=== PATIENT | male | born 1965 | race Caucasian/White ===

== ENCOUNTER 2019-12-16 10:35 | Emergency (ER) | payer MEDICAID ==
[~2019-12-16] VITALS: Ht 177.8 cm; Wt 113.4 kg
[2019-12-16] MEDS ORDERED: IV NORMAL SALINE 1000 ML BAG IV ONE (11:00)
[2019-12-16] MEDS ORDERED: LORAZEPAM 2 MG/1 ML VIAL IV ONE (11:00)
[2019-12-16] MEDS ORDERED: LORAZEPAM 2 MG/1 ML VIAL ONE (11:24)
[2019-12-16 11:28] LABS: BASOPHILS # (AUTO) 0.1 K/uL (0.0-8.0); BASOPHILS % (AUTO) 0.5 % (0.0-2.0); EOSINOPHILS # (AUTO) 0.4 K/uL (0.0-0.7); EOSINOPHILS % (AUTO) 3.3 % (0.0-7.0); HEMATOCRIT 41.4 % (36.7-47.1); HEMOGLOBIN 13.7 g/dL (12.5-16.3); LYMPHOCYTES % (AUTO) 15.6 % (20.5-51.5); MEAN CORPUSCULAR HGB CONC 33 g/dL (32.5-36.3); MEAN CORPUSCULAR VOLUME 87.4 fL (73.0-96.2); MONOCYTES # (AUTO) 1.2 K/uL (2.0-10.0); MONOCYTES % (AUTO) 9.8 % (0.0-11.0); NEUTROPHILS % (AUTO) 70.8 % (38.5-71.5); PLATELET COUNT (AUTO) 346 K/uL (152-348); RED BLOOD CELL COUNT(AUTO) 4.74 MIL/uL (4.06-5.63); WHITE BLOOD COUNT (AUTO) 12.7 K/uL (3.6-10.2)
[2019-12-16 11:42] LABS: BILIRUBIN,DIRECT 0.1 mg/dL (0.0-0.2); BILIRUBIN,TOTAL 0.2 mg/dL (0.2-1.0); CREATININE 0.9 mg/dL (0.6-1.3); POTASSIUM 3.6 mmol/L (3.5-5.1); TOTAL PROTEIN, SERUM 8.4 g/dL (6.4-8.2)
[2019-12-16] MEDS ORDERED: HYDROMORPHONE 1 MG/1 ML DISP.SYRIN IV ONE ×2 (12:15→19:00)
[2019-12-16] MEDS ORDERED: HYDROMORPHONE 1 MG/1 ML DISP.SYRIN ONE ×2 (12:33→19:06)
[2019-12-16] MEDS ORDERED: CEFTRIAXONE 1 G VIAL ONE (13:57)
[2019-12-16] MEDS ORDERED: CEFTRIAXONE 2 G in IV DEXTROSE 5% 100 ML IV ONE (14:00)
--- NOTE | 2019-12-16 14:00 | NUR ---
Attempted to obtain information about current home medications, pt refused to provide any information at this time. Pt states " I just want to rest right now ".
--- NOTE | 2019-12-16 16:45 | NUR ---
ACCORDING TO [facility] [employer], PT IS GOING TO BE TRANSFERED TO [facility] ER VIA [facility]. ADMITTING MD IS DR. MEIER. PHONE NUMBER FOR REPORT IS : [phone]. AMBULANCE COMPANY "[employer] [facility] [employer]" WAS CALLED ACCORDING TO PT's INSURANCE REQUEST ([phone]). [place] IS 2030. PT IS RESTING COMFORTABLY IN THE BED. NO S/S OF ACUTE DISTRESS AT THIS TIME. CONTINUE TO MONITOR THE PT.
[2019-12-16] MEDS ORDERED: AZITHROMYCIN 500MG/ D5W 250ML IVPB **ER PYXIS ONLY IV ONE (18:55)
[2019-12-16] MEDS ORDERED: ONDANSETRON 4 MG/2 ML VIAL IV ONE (19:00)
[2019-12-16] MEDS ORDERED: AZITHROMYCIN IV 500 MG in IV DEXTROSE 5% 250 ML IV ONE (19:00)
[2019-12-16] MEDS ORDERED: ONDANSETRON 4 MG/2 ML VIAL ONE (19:06)
--- NOTE | 2019-12-16 20:57 | NUR ---
Report given to Rashid JANE [facility].
--- NOTE | 2019-12-16 21:07 | NUR ---
Max arrived to ER to transport patient to [facility]. Report and documentation given to EMT.
== END 2019-12-16 22:07 | disposition short-term general hospital (02) ==
LOC: ER 10:35
DX: J18.9 Pneumonia, unspecified organism (principal); G89.29 Other chronic pain; M25.569 Pain in unspecified knee; E78.5 Hyperlipidemia, unspecified; J44.9 Chronic obstructive pulmonary disease, unspecified; E11.9 Type 2 diabetes mellitus without complications
CPT/HCPCS: 36415; 71045; 80048; 80076; 82962; 83690; 85025; 87400; 93005; 96361; 96365; 96367; 96375; 96376; 99285; J0456; J0696; J1170 ×2; J2060; J2405; A4663; J7030

== ENCOUNTER 2020-01-04 12:36 | Emergency (ER) | payer MEDICAID, OTHER ==
[~2020-01-04] VITALS: Ht 177.8 cm; Wt 108.9 kg
--- NOTE | 2020-01-04 12:40 | NUR ---
called pt name. pt not in er waiting room or ouside the er waiting room
[2020-01-04] MEDS ORDERED: HYDROMORPHONE 2 MG/1 ML DISP.SYRIN ONE (13:14)
[2020-01-04] MEDS ORDERED: ONDANSETRON 4 MG/2 ML VIAL ONE (13:14)
[2020-01-04] MEDS ORDERED: HYDROMORPHONE 1 MG/1 ML DISP.SYRIN IM ONE (13:15)
[2020-01-04] MEDS ORDERED: ONDANSETRON 4 MG/2 ML VIAL IM ONE (13:15)
--- NOTE | 2020-01-04 13:18 | NUR ---
PT WAS EVALUATED BY DR LINARES. PT WAS MEDICATED ACCORDING TO ER MD ORDERS. PT TOLERATED TO MEDICATION WITHOUT COMPLICATIONS. PT WAS D/C'D TO HOME. D/C INSTRUCTIONS GIVEN TO THE PT.
[2020-01-04 13:24] VITALS: BP 134/81
== END 2020-01-04 13:25 | disposition home or self-care (01) ==
LOC: ER 12:36
DX: G89.29 Other chronic pain (principal); M54.5 Low back pain; E11.9 Type 2 diabetes mellitus without complications; J44.9 Chronic obstructive pulmonary disease, unspecified; E78.5 Hyperlipidemia, unspecified
CPT/HCPCS: 96372 ×2; 99284; J1170; J2405; A4663

== ENCOUNTER 2021-03-28 02:41 | Emergency (ER) | payer MEDICAID, OTHER ==
[~2021-03-28] VITALS: Ht 162.6 cm; Wt 108.9 kg
--- NOTE | 2021-03-28 02:50 | NUR ---
Pt bib RA 39 with c/o hyperglycemia and back spasms, A/O x4 able to make need verbally known, clear speech complete sentences. No SOB or labored breathing, afebrile, noted with diaphoresis. All pulses palpable, no edema noted. No c/o GI/. Pt noted to be slightly anxious. Able to follow instructions, ambulatory educated on safety precautions but pt continues to stand up due to back spams. Patient now in bed, lowest position.
[2021-03-28] MEDS ORDERED: CYCL5TAB PO (03:05)
[2021-03-28] MEDS ORDERED: FURO40TA5 PO (03:05)
[2021-03-28] MEDS ORDERED: PANT40TA2 PO (03:05)
[2021-03-28] MEDS ORDERED: CARI350T PO (03:05)
[2021-03-28] MEDS ORDERED: MONT10TA33 PO (03:05)
[2021-03-28] MEDS ORDERED: ONDA4TAB5 PO (03:05)
[2021-03-28] MEDS ORDERED: robaxin (03:05)
[2021-03-28] MEDS ORDERED: GLIP10TA11 PO (03:05)
[2021-03-28] MEDS ORDERED: BACL10TA PO (03:05)
[2021-03-28] MEDS ORDERED: ATOR10TA PO (03:05)
[2021-03-28] MEDS ORDERED: AMIT50TA3 PO (03:05)
[2021-03-28] MEDS ORDERED: MELO-107 PO (03:05)
[2021-03-28] MEDS ORDERED: GABA-536 PO (03:05)
[2021-03-28] MEDS ORDERED: METF-440 PO ×2 (03:05→05:20)
[2021-03-28] MEDS ORDERED: LISI10TA29 PO (03:05)
[2021-03-28] MEDS: IV NORMAL SALINE 1000 ML BAG IV ONE ×2 (03:10→04:31)
[2021-03-28 03:11] LABS: BASOPHILS # (AUTO) 0.1 K/uL (0.0-8.0); BASOPHILS % (AUTO) 0.6 % (0.0-2.0); EOSINOPHILS # (AUTO) 0.6 K/uL (0.0-0.7); EOSINOPHILS % (AUTO) 3.6 % (0.0-7.0); HEMATOCRIT 38.7 % (36.7-47.1); HEMOGLOBIN 12.8 g/dL (12.5-16.3); LYMPHOCYTES # (AUTO) 1.8 K/uL (20.0-40.0); LYMPHOCYTES % (AUTO) 11.8 % (20.5-51.5); MEAN CORPUSCULAR HEMOGLOBIN 29.2 uug (23.8-33.4); MEAN CORPUSCULAR HGB CONC 33 g/dL (32.5-36.3); MEAN CORPUSCULAR VOLUME 88.5 fL (73.0-96.2); MONOCYTES # (AUTO) 1.3 K/uL (2.0-10.0); MONOCYTES % (AUTO) 8.4 % (0.0-11.0); NEUTROPHILS # (AUTO) 11.7 K/uL (1.8-8.9); NEUTROPHILS % (AUTO) 75.6 % (38.5-71.5); PLATELET COUNT (AUTO) 345 K/uL (152-348); RED BLOOD CELL COUNT(AUTO) 4.37 MIL/uL (4.06-5.63); WHITE BLOOD COUNT (AUTO) 15.4 K/uL (3.6-10.2)
[2021-03-28] MEDS ORDERED: METFORMIN HCL 500 MG TABLET ONE (03:14)
[2021-03-28] MEDS ORDERED: GABAPENTIN 300 MG CAPSULE ONE (03:14)
[2021-03-28] MEDS ORDERED: BACLOFEN 10 MG TABLET ONE (03:14)
[2021-03-28] MEDS: BACLOFEN 10 MG TABLET PO ONE (03:15)
[2021-03-28] MEDS: GABAPENTIN 300 MG CAPSULE PO ONE (03:15)
[2021-03-28] MEDS: METFORMIN HCL 500 MG TABLET PO ONE (03:15)
--- NOTE | 2021-03-28 03:20 | NUR ---
Rechecked glucose reading noted to be 494, Dr. Nelson made aware with NNO. Patient A/O x4, no changes in LOC.
[2021-03-28 03:23] LABS: ALANINE AMINOTRANSFERASE 36 U/L (16-63); ALKALINE PHOSPHATASE 176 U/L (50-136); ASPARTATE AMINOTRANSFERASE 23 U/L (15-37); BILIRUBIN,DIRECT < 0.1 mg/dL (0.0-0.2); BILIRUBIN,TOTAL 0.1 mg/dL (0.2-1.0); CARBON DIOXIDE 25 mmol/L (21-32); CHLORIDE 97 mmol/L (98-107); POTASSIUM 5.1 mmol/L (3.5-5.1); TOTAL PROTEIN, SERUM 8.2 g/dL (6.4-8.2); UREA NITROGEN, BLOOD 24 mg/dL (7-18)
[2021-03-28 03:29] LABS: GLUCOSE 521 mg/dL (74-106)
[2021-03-28 03:55] LABS: *BILIRUBIN,URIN NEGATIVE (NEGATIVE); *BLOOD, URINE NEGATIVE (NEGATIVE); *CLARITY,URINE CLEAR (CLEAR); *COLOR,URINE YELLOW (YELLOW); *KETONES,URINE NEGATIVE (NEGATIVE); *UROBILINOGEN,URINE 0.2 E.U./dl (NORMAL); LEUKOCYTE ESTERASE ,URINE NEGATIVE (NEGATIVE); NITRITE, URINE NEGATIVE (NEGATIVE); UGLUCOSE 2+ (NEGATIVE)
[2021-03-28 04:08] LABS: BACTERIA,URINE NONE SEEN /HPF (NONE SEEN); RBC,URINE 0-3 /HPF (0-3); SQUAMOUS EPITHELIAL CELL,UR FEW /HPF (NONE SEEN); WBC,URINE 0-3 /HPF (0-3)
--- NOTE | 2021-03-28 04:33 | NUR ---
Rechecked glucose reading noted to be 366, Dr. Nelson made aware with no new orders.
[2021-03-28] MEDS: KETOROLAC TROMETHAMINE 30 MG INJ IM ONE (04:48)
[2021-03-28] MEDS ORDERED: KETOROLAC TROMETHAMINE 30 MG INJ ONE (04:52)
--- NOTE | 2021-03-28 04:52 | NUR ---
Patient continuously gets up and ambulate multiple times despite numerous attemtps of education for safety and fall precautions. Patient is noncompliant with safety precautions. Room is kept clean and clutter free, well lit, dry floor. Will continue to reeducate pt regaurding safety and fall precautions.
[2021-03-28] MEDS: HYDROCODONE/APAP 5-325MG TABLET PO ONE (05:15)
[2021-03-28] MEDS ORDERED: HYDROCODONE/APAP 5-325MG TABLET ONE (05:22)
--- NOTE | 2021-03-28 05:22 | NUR ---
Patient noted to be in bed reeducated reguarding safety and fall precautions.
--- NOTE | 2021-03-28 05:35 | NUR ---
Rechecked glucose level noted to be 324, Dr. Nelson made aware with NNO.
--- NOTE | 2021-03-28 05:48 | NUR ---
Spoke with Max from [facility] [employer] with ETA of 20-40 minutes.
--- NOTE | 2021-03-28 06:05 | NUR ---
Patient discharged to home in stable condition. Written and verbal after care instructions given, instructed not to drive. Patient verbalizes understanding of instructions. Stressed follow up or return to ER for worsening s/s. Steady gait, no c/o pain or discomfort, no changes in LOC, A/O x4
[2021-03-28 06:07] VITALS: BP 155/87
== END 2021-03-28 06:05 | disposition home or self-care (01) ==
LOC: ER 02:45
DX: E11.65 Type 2 diabetes mellitus with hyperglycemia (principal); Z79.84 Long term (current) use of oral hypoglycemic drugs; J44.9 Chronic obstructive pulmonary disease, unspecified; R00.0 Tachycardia, unspecified; I45.10 Unspecified right bundle-branch block; Z82.49 Family history of ischemic heart disease and other diseases of the circulatory system; M54.9 Dorsalgia, unspecified; Z79.899 Other long term (current) drug therapy
CPT/HCPCS: 36415; 80048; 80076; 81001; 82962 ×3; 84484; 85025; 93005; 96360; 96361; 96372; 99285; J1885; 70030-TC; A4663; J7030